=== PATIENT | female | born 1995 | race Caucasian/White ===

== ENCOUNTER 2023-01-08 22:40 | Inpatient (IN) | payer MEDICAID, SELFPAY ==
[2023-01-08] VITALS (11 sets, daily range): BP systolic 119–126; BP diastolic 68–73; PULSE 82–100; TEMP 36.5–36.9; O2SAT 99–100; BMI 30.6
[2023-01-08 22:35] LABS: ROM Internal Control Test YES-OK TO RESULT pt. (Internal QC)
[2023-01-08 22:40] LABS: ROM Patient Test POSITIVE (Negative); Record Kit Lot#, ROM+ K1374
[2023-01-08] MEDS: Lactated Ringers 1,000 ML 200 ML IV (23:15)
[2023-01-08 23:20] LABS: Absolute Lymphocyte Count 2.45 X10^3/uL (0.83-4.51); Absolute Neutrophil Count 9.6 X10^3/uL (2.0-7.7); Basophil# 0.05 X10^3/uL; Basophil% 0.4 % (0-1); Eosinophil# 0.26 X10^3/uL; Eosinophils% 1.9 % (0-5); Hematocrit 31.9 % (37-47); Hemoglobin 10.2 g/dL (12.0-15.0); Lymphocyte # 2.45 X10^3/ul (0.83-4.51); Lymphocyte % 18.4 % (19-41); Mean Corpuscular Hgb 28.8 pg (27.0-32.0); Mean Corpuscular Volume 90.1 fL (81-99); Mean Platelet Vol. 10.6 fl (6.2-12.0); Monocyte# 0.91 X10^3/uL; Monocyte% 6.8 % (0-10); NRBC Flagged by Analyzer 0 % (0-5); Platelet Count 321 K/mm3 (150-450); RBC Distribution Width SD 39.5 fl (35.1-43.9); Red Blood Count 3.54 M/mm3 (4.2-5.4); White Blood Count 13.3 K/mm3 (4.4-11.0)
[2023-01-09] VITALS (57 sets, daily range): BP systolic 98–133; BP diastolic 53–82; PULSE 63–112; RESP 16; TEMP 36.6–36.9; O2SAT 92–100
[2023-01-09] MEDS: LACTATED RINGERS 500 ML 999 ML IV (03:42)
[2023-01-09] MEDS: Lactated Ringers 1,000 ML 200 ML IV ×2 (04:11→10:00)
[2023-01-09] MEDS: fentaNYL-bupivacaine (epidural) 100 ML BAG EPIDURAL ×2 (05:12→10:05)
[2023-01-09] MEDS: Oxytocin 15 Units/NS 250ml 15 UNITS/250 ML IV.SOLN 2 UNITS IV (05:57)
--- NOTE | 2023-01-09 08:15 | PCM.HP.OB ---
HPI - General General Date of Admission: 01/08/23 HPI Narrative TEAGAN ULLOA, is a 27 F @ 38.6 weeks who presents c/o SROM on 01/08/23. pt was found to be in early labor. PFSH [facility] Medical History (Updated 01/09/23 @ 08:[address] Valerie Pearson MD) Genital herpes affecting Home Medications vitamins no.144-folic acid 400 mcg chewable tablet () 1 tab PO DAILY 01/08/23 [History Last Taken Unknown] valacyclovir 500 mg tablet (Valtrex) 500 mg PO BID 01/08/23 [History Last Taken 01/08/23 10:00 500 mg] Allergy/AdvReac Type Severity Reaction Status Date / Time No Known Allergies Allergy Verified 01/08/23 22:20 Surgical History no surgical history Social History Smoking Status: Current every day smoker History Elective abortions Hx Para 1 Spontaneous abortions Hx # Term Pregnancies Ectopic pregnancies Hx # Pregnancies Multiple births # of living children NST FHR Rate Baby A Baseline: 130 Variability:: Moderate Accelerations:: 15 x 15 Decelerations:: None NST Reactive:: Yes FHR Category:: Category I Uterine Activity:: 2-3 min Vital Signs Vital Signs Vital Signs: 01/08/23 21:52 01/08/23 21:52 01/08/23 21:54 Temperature Temperature Source Pulse Rate 96 Blood Pressure 126/68 H BP Systolic 126 BP Diastolic 68 Pulse Ox 100 01/08/23 21:54 01/08/23 21:55 01/08/23 21:55 Temperature Temperature Source Temporal Pulse Rate 100 Blood Pressure 126/68 H BP Systolic 126 BP Diastolic 68 Pulse Ox 01/08/23 21:55 01/08/23 21:55 01/08/23 21:55 Temperature 98.4 F Temperature Source Pulse Rate 96 Blood Pressure BP Systolic BP Diastolic Pulse Ox 99 01/08/23 22:18 01/08/23 22:18 01/08/23 22:23 Temperature Temperature Source Pulse Rate 99 87 Blood Pressure BP Systolic BP Diastolic Pulse Ox 99 01/08/23 22:23 01/08/23 22:28 01/08/23 22:28 Temperature Temperature Source Pulse Rate 93 Blood Pressure BP Systolic BP Diastolic Pulse Ox 99 99 01/08/23 22:33 01/08/23 22:33 01/08/23 22:38 Temperature Temperature Source Pulse Rate 85 95 Blood Pressure BP Systolic BP Diastolic Pulse Ox 99 01/08/23 22:38 01/08/23 23:30 01/08/23 23:30 Temperature Temperature Source Pulse Rate 82 Blood Pressure 119/73 BP Systolic 119 BP Diastolic 73 Pulse Ox 99 01/08/23 23:29 01/08/23 23:29 01/08/23 23:29 Temperature 97.7 F L Temperature Source Temporal Pulse Rate Blood Pressure BP Systolic BP Diastolic Pulse Ox 100 01/08/23 23:29 01/08/23 23:29 01/08/23 23:29 Temperature 97.7 F L Temperature Source Temporal Pulse Rate Blood Pressure BP Systolic BP Diastolic Pulse Ox 100 01/08/23 23:43 01/08/23 23:43 01/09/23 00:18 Temperature Temperature Source Pulse Rate 95 Blood Pressure 108/58 L BP Systolic 108 BP Diastolic 58 Pulse Ox 100 01/09/23 00:18 01/09/23 00:18 01/09/23 00:18 Temperature 98.5 F Temperature Source Temporal Pulse Rate 86 Blood Pressure BP Systolic BP Diastolic Pulse Ox 01/09/23 01:32 01/09/23 01:32 01/09/23 01:32 Temperature Temperature Source Temporal Pulse Rate 91 Blood Pressure 112/54 L BP Systolic 112 BP Diastolic 54 Pulse Ox 01/09/23 01:32 01/09/23 01:32 01/09/23 02:20 Temperature 98.3 F Temperature Source Temporal Pulse Rate Blood Pressure BP Systolic BP Diastolic Pulse Ox 100 01/09/23 02:21 01/09/23 02:21 01/09/23 02:20 Temperature 97.8 F Temperature Source Pulse Rate 77 Blood Pressure 118/67 BP Systolic 118 BP Diastolic 67 Pulse Ox 01/09/23 03:27 01/09/23 03:27 01/09/23 03:27 Temperature Temperature Source Temporal Pulse Rate 74 Blood Pressure 110/69 BP Systolic 110 BP Diastolic 69 Pulse Ox 01/09/23 03:27 01/09/23 03:27 01/09/23 04:16 Temperature 97.8 F Temperature Source Pulse Rate 65 Blood Pressure BP Systolic BP Diastolic Pulse Ox 100 01/09/23 04:16 01/09/23 04:30 01/09/23 04:30 Temperature Temperature Source Pulse Rate 69 Blood Pressure BP Systolic BP Diastolic Pulse Ox 99 100 01/09/23 04:35 01/09/23 04:35 01/09/23 04:39 Temperature Temperature Source Pulse Rate 68 Blood Pressure 118/67 BP Systolic 118 BP Diastolic 67 Pulse Ox 100 01/09/23 04:39 01/09/23 04:40 01/09/23 04:40 Temperature Temperature Source Pulse Rate 76 75 Blood Pressure BP Systolic BP Diastolic Pulse Ox 92 01/09/23 04:44 01/09/23 04:44 01/09/23 04:45 Temperature Temperature Source Pulse Rate 68 84 Blood Pressure 126/71 H BP Systolic 126 BP Diastolic 71 Pulse Ox 01/09/23 04:45 01/09/23 04:49 01/09/23 04:49 Temperature Temperature Source Pulse Rate 81 Blood Pressure 124/76 H BP Systolic 124 BP Diastolic 76 Pulse Ox 100 01/09/23 04:50 01/09/23 04:50 01/09/23 04:54 Temperature Temperature Source Pulse Rate 80 Blood Pressure 128/68 H BP Systolic 128 BP Diastolic 68 Pulse Ox 100 01/09/23 04:54 01/09/23 04:55 01/09/23 04:55 Temperature Temperature Source Pulse Rate 82 80 Blood Pressure BP Systolic BP Diastolic Pulse Ox 100 01/09/23 05:00 01/09/23 05:00 01/09/23 05:00 Temperature Temperature Source Pulse Rate 74 Blood Pressure 120/73 BP Systolic 120 BP Diastolic 73 Pulse Ox 100 01/09/23 05:04 01/09/23 05:04 01/09/23 05:05 Temperature Temperature Source Pulse Rate 77 83 Blood Pressure 120/73 BP Systolic 120 BP Diastolic 73 Pulse Ox 01/09/23 05:05 01/09/23 05:09 01/09/23 05:09 Temperature 97.9 F Temperature Source Temporal Pulse Rate Blood Pressure BP Systolic BP Diastolic Pulse Ox 100 01/09/23 05:10 01/09/23 05:10 01/09/23 05:15 Temperature Temperature Source Pulse Rate 93 Blood Pressure 102/53 L BP Systolic 102 BP Diastolic 53 Pulse Ox 100 01/09/23 05:15 01/09/23 05:15 01/09/23 05:15 Temperature Temperature Source Pulse Rate 85 84 Blood Pressure BP Systolic BP Diastolic Pulse Ox 100 01/09/23 05:20 01/09/23 05:20 01/09/23 05:20 Temperature Temperature Source Pulse Rate 86 Blood Pressure 106/58 L BP Systolic 106 BP Diastolic 58 Pulse Ox 100 01/09/23 05:26 01/09/23 05:26 01/09/23 05:25 Temperature Temperature Source Pulse Rate 94 Blood Pressure 110/58 L BP Systolic 110 BP Diastolic 58 Pulse Ox 100 01/09/23 05:29 01/09/23 05:29 01/09/23 05:30 Temperature Temperature Source Pulse Rate 94 88 Blood Pressure 116/67 BP Systolic 116 BP Diastolic 67 Pulse Ox 01/09/23 05:30 01/09/23 05:35 01/09/23 05:35 Temperature Temperature Source Pulse Rate 83 Blood Pressure BP Systolic BP Diastolic Pulse Ox 100 100 01/09/23 05:36 01/09/23 05:36 01/09/23 05:40 Temperature Temperature Source Pulse Rate 83 Blood Pressure 106/57 L 105/55 L BP Systolic 106 105 BP Diastolic 57 55 Pulse Ox 01/09/23 05:40 01/09/23 05:40 01/09/23 05:45 Temperature Temperature Source Pulse Rate 86 85 Blood Pressure BP Systolic BP Diastolic Pulse Ox 100 01/09/23 05:45 01/09/23 05:50 01/09/23 05:50 Temperature Temperature Source Pulse Rate 83 Blood Pressure BP Systolic BP Diastolic Pulse Ox 100 100 01/09/23 05:55 01/09/23 05:55 01/09/23 06:00 Temperature Temperature Source Pulse Rate 86 112 H Blood Pressure BP Systolic BP Diastolic Pulse Ox 100 01/09/23 06:00 01/09/23 06:04 01/09/23 06:04 Temperature Temperature Source Pulse Rate 96 Blood Pressure 107/60 BP Systolic 107 BP Diastolic 60 Pulse Ox 100 01/09/23 06:04 01/09/23 06:14 01/09/23 06:14 Temperature 97.9 F Temperature Source Pulse Rate 74 Blood Pressure 104/58 L BP Systolic 104 BP Diastolic 58 Pulse Ox 01/09/23 06:20 01/09/23 06:20 01/09/23 07:17 Temperature 97.9 F Temperature Source Temporal Pulse Rate Blood Pressure 104/64 BP Systolic 104 BP Diastolic 64 Pulse Ox 01/09/23 07:17 01/09/23 08:11 01/09/23 08:11 Temperature Temperature Source Pulse Rate 77 89 Blood Pressure 98/53 L BP Systolic 98 BP Diastolic 53 Pulse Ox 01/09/23 08:10 01/09/23 08:10 01/09/23 08:11 Temperature 98.4 F Temperature Source Temporal Pulse Rate 68 Blood Pressure BP Systolic BP Diastolic Pulse Ox 01/09/23 08:11 Temperature Temperature Source Pulse Rate Blood Pressure BP Systolic BP Diastolic Pulse Ox 98 Weight Weight: 73.482 kg Body Mass Index (BMI) 30.6 Physical Exam Narrative VE: /-1 no visible hsv lesion- pt reports last outbreak apr 2022 and has been taking suppression Const alert and oriented x3 General Appearance: cooperative HEENT normocephalic GI GI Narrative: Gravid, non tender to palpation. OB / External & Speculum: external exam normal Extremity normal to inspection Skin no rashes or lesions noted Neuro oriented x3 and CN's II-XII intact bilaterally Psych Appearance: grossly normal Labs Labs Labs: Blood Type A POSITIVE Antibody Screen NEGATIVE Hct 31.9 % (37-47) L Hgb 10.2 g/dL (12.0-15.0) L Syphilis Total Ab Pending Assessment & Plan (1) 38 weeks gestation of : (2) Spontaneous rupture of membranes: (3) Tobacco use affecting in third trimester, antepartum: (4) Genital herpes affecting : QUALIFIERS: Trimester: third trimester Qualified Code(s): O98.313 - Other infections with a predominantly sexual mode of transmission complicating , third trimester; A60.09 - Herpesviral infection of other urogenital tract COMMENT: on suppression- no active lesions PLAN: Plan Admit to L&D Montior FHR/TOCO Epidural if requested for pain Monitor VS Anticipate pitocin for augmentation GBS negative A+
[2023-01-09] MEDS: Oxytocin 15 Units/NS 250ml 15 UNITS/250 ML IV.SOLN 83 UNITS IV (11:37)
--- NOTE | 2023-01-09 11:47 | EX.PCM.OBRPT ---
Vaginal Delivery Maternal Presentation Maternal Presentation: Spontaneous Rupture of Membranes Operative Information Date of Procedure: 01/09/23 Pre-Operative Diagnosis: Term gestation-38.6 weeks, spontaneous rupture membranes, HSV-no active lesions Post-Operative Diagnosis: Live female born Surgery / Procedure Performed: Spontaneous Vaginal Delivery Type of Anesthesia: Epidural Drain: Jetre to straight drain Estimated Blood Loss: 100 Time of Delivery: 11:35 Findings Description of Procedure: Patient was fully dilated 100% effaced +2 station. Good maternal pushing efforts delivered the infant's head followed by the anterior shoulder and the rest the infant's body without complication. The infant was vigorous at time of delivery and placed on the mother's chest for immediate skin to skin. Delayed cord clamping was performed. Pitocin was started and placenta was delivered intact without complication. Vaginal and perineal tissue were examined and noted to be intact. Presentation: Vertex Amniotic Membrane Rupture Type: Spontaneous Amniotic Fluid Description: Clear Placental Delivery Description: Spontaneous Placenta Disposition: [facility] Cord Vessel Description: 3 Vessels Cord Entanglement: None Infant A Gender: Female (1 minute): 8 (5 minute): 9 Delayed Cord Clamping: Yes Post Vaginal Delivery Medications Given After Delivery: IV Pitocin Episiotomy Description: None Laceration: None Complication Complications: None
[2023-01-09] MEDS: Acyclovir 200 MG Capsule 400 MG PO ×2 (15:04→21:56)
[2023-01-09] MEDS: Ibuprofen 600 MG Tablet PO (21:55)
[2023-01-09] MEDS: Acetaminophen 500 MG Tablet 1000 MG PO (21:56)
[2023-01-10 03:39] VITALS: BP 119/68; PULSE 71; O2SAT 100
[2023-01-10 04:25] VITALS: BP 119/68; PULSE 68; RESP 16; TEMP 36.6; O2SAT 100
--- NOTE | 2023-01-10 08:04 | PCM.PROGNOTE ---
Subjective Subjective patient seen at bedside, doing well. Patient reports good pain control. lochia mild. Objective Data Objective Data Vital Signs: Vital Signs Temp Pulse Resp BP Pulse Ox O2 Del Method 97.8 F 68 16 119/68 100 Room Air 01/10/23 04:25 01/10/23 04:25 01/10/23 04:25 01/10/23 04:25 01/10/23 04:25 01/10/23 04:25 Oxygen Delivery Method Room Air Weight: 73.482 kg Body Mass Index (BMI) 30.6 Intake & Output: Intake and Output for Last 24 Hours 01/08/23 01/09/23 01/10/23 23:59 23:59 23:59 Intake Total 3086.61 / 3086.61 Output Total 3250 / 3250 Balance -163.39 / -163.39 Lab / Micro Data 01/08/23 23:00 Labs: Laboratory Results - last 24 hr 01/08/23 23:00: Antibody Screen NEGATIVE Physical Exam Narrative abd: fundus firm. Const alert and oriented x3 General Appearance: cooperative HEENT normocephalic Neck General: normal visual inspection GI soft to palpation and non-distended GI Narrative: Fundus firm Extremity normal to inspection and no calf tenderness Skin no rashes or lesions noted Neuro oriented x3 and CN's II-XII intact bilaterally Psych mental status grossly normal Assessment & Plan Assessment/Plan (1) Vaginal delivery: PLAN: Plan PPD# 1 , Doing well Routine care pain mgmt ambulation dc home today
[2023-01-10 08:05] VITALS: BP 121/71; PULSE 73; RESP 16; TEMP 36.4; O2SAT 99
--- NOTE | 2023-01-10 08:05 | DCINST_ITS ---
Discharge Instructions Diet Discharge Diet: No restrictions Activity May resume sexual activity in: 6-8 weeks Dressing / Incision Call your doctor if you observe: Fever of 101 or Higher, Inability to urinate, Using more than 1 pad per hour and Uncontrolled pain Follow Up Care Please Follow Up With: Valerie Pearson MD When: 1-2 weeks post and again at 6 weeks post . [phone] Test Results: Test results from this visit will be discussed in further detail at your follow- up appointment, if applicable. Discharge Plan Admission Admit Date/Time: 01/08/23 22:40 Attending Provider: Valerie Pearson Discharge Orders/Prescriptions Prescriptions: New acetaminophen 500 mg Tablet 1,000 mg PO Q6H PRN PRN (Reason: Pain 1-10 Or Fever) Qty: 0 0RF ibuprofen 600 mg Tablet 600 mg PO Q6H PRN PRN (Reason: Pain Score 1-3) Qty: 0 0RF Continued 400 mcg tablet,chewable 1 tab PO DAILY valacyclovir [Valtrex] 500 mg tablet 500 mg PO BID Disposition Disposition (needs filled in before D/C Order can be placed): Home, Self Care
[2023-01-10 08:08] VITALS: BP 121/71; PULSE 76
[2023-01-10] MEDS: Acyclovir 200 MG Capsule 400 MG PO (08:10)
[2023-01-10 12:16] VITALS: BP 112/76; PULSE 82
[2023-01-10 12:18] VITALS: BP 112/76; PULSE 79; RESP 16; TEMP 36.4; O2SAT 100
[2023-01-11 14:51] LABS: Syphilis Antibodies Non-reactive
== END 2023-01-10 14:50 | disposition home or self-care (01) | DRG 560 ==
LOC: WPOUT 22:44 → WP 22:44
PROVIDERS: Admitting Provider Obstetrics & Gynecology; Referring Provider Obstetrics & Gynecology; Visit Provider Obstetrics & Gynecology
DX: O42.92 Full-term premature rupture of membranes, unspecified as to length of time between rupture and onset of labor (principal); Z37.0 Single live birth; F17.200 Nicotine dependence, unspecified, uncomplicated; O99.334 Smoking (tobacco) complicating childbirth; Z3A.38 38 weeks gestation of pregnancy; Z86.19 Personal history of other infectious and parasitic diseases
CPT/HCPCS: 59025; 59050; 84112; 85025; 86780; 86850; 86900; 86901; 99221; J7120; G0378